=== PATIENT | female | born 1940 | race Caucasian/White ===

== ENCOUNTER 2017-09-16 14:49 | Inpatient (IN) | payer MEDICARE, MEDICAID ==
[~2017-09-16] VITALS: Ht 157.5 cm; Wt 64.2 kg
[~2017-09-16 14:49] MED LIST: ACIDOPHILUS1 EAC3 PO; ASPIR 8181 MG PO; BANOPHEN25 MG PO; CALCIUM 600 +1 EAC1 PO; CALCIUM VITAMIN D PO; CEFUROXIME500 MG PO; CENTRUM SILVER1 EAC4 PO; CLARITIN10 MG PO; COLACE 100 MG100 MG PO; COLACE100 MG PO; ENOXAPARIN40 MG/0.1 SUBQ; ENSURE ORIGINA237 ML PO; FENTANYL PA50 MCG/HR TOP; FLAGYL500 MG PO; FLEXERIL PO; FLORANEX TABLE1 EACH PO; GABAPENTIN 100100 MG PO; HUMALOG100 UNIT/1; HUMALOG100 UNIT/1 SUBQ; HYDROCODONE-AP1 EAC6 PO; LACTINEX CHEWA1 EACH PO; LEVOTHYROXIN0.075 MG PO; LEVOTHYROXINE 0.1 MG PO; LEVOTHYROXINE75 MCG PO; LIDODERM 5%1 PATC1 TOP; LIPITOR10 MG PO; MAGOX 400400 MG PO; MELATONIN3 MG PO; METFORMIN HCL500 MG PO; MILK OF MA2400 MG/10 PO; MIRALAX17 GM PO; NORCO 5-325 TA1 EACH PO; NORVASC5 MG PO; NOVOLOG100 UNIT/1 SUBQ; OMEGA-31000 M1 PO; ONDANSETRON HCL4 M2 PO; PANTOPRAZOLE SO40 M1 PO; PROTONIX 20 MG20 M1 PO; PROVIGIL 100 M100 M1 PO; SENNA8.6 MG PO; SERTRALINE HCL50 MG PO; TESSALON PERLE100 MG PO; THERAPEUTIC-M1 EAC2 PO; TYLENOL325 MG PO; VANCOCIN 125 M125 M1 PO; VANCOMYCIN100 MG/M1 PO; ZOCOR20 MG PO
[2017-09-16 14:54] VITALS: BP 178/93
[2017-09-16] MEDS ORDERED: ROBITUSSIN COU118 M5 PO (15:10)
[2017-09-16] MEDS ORDERED: PROBIOTIC1 EAC2 PO (15:11)
[2017-09-16] MEDS ORDERED: OMEPRAZOLE 20 M20 M1 PO (15:11)
[2017-09-16] MEDS ORDERED: CRANBERRY400 MG PO (15:11)
[2017-09-16] MEDS ORDERED: BENADRYL ITCH28.3 G1 TOP (15:12)
[2017-09-16] MEDS ORDERED: MUCINEX600 MG PO (15:12)
[2017-09-16] MEDS ORDERED: GLUCOTROL5 MG PO (15:12)
[2017-09-16] MEDS ORDERED: LEVAQUIN 500 M500 M2 PO (15:12)
[2017-09-16] MEDS ORDERED: LEVOXYL125 MCG PO (15:24)
[2017-09-16] MEDS ORDERED: CHILDREN'S30 MG/5 M4 PO (15:25)
[2017-09-16 15:27] LABS: ABSOLUTE BASOPHILS 0.1 thou/uL (0.0-0.2); ABSOLUTE EOSINOPHILS 0.3 thou/uL (0.0-0.7); ABSOLUTE LYMPHOCYTES 2.1 thou/uL (0.8-5.3); ABSOLUTE MONOCYTES 0.8 thou/uL (0.0-1.2); ABSOLUTE NEUTROPHILS 7.5 thou/uL (1.6-8.1); BASOPHILS 0.6 %; EOSINOPHILS 2.9 %; HEMATOCRIT 34.4 % (37.0-47.0); HEMOGLOBIN 11.2 gm/dL (12.0-15.0); LYMPHOCYTES 19.7 %; MCH 23.8 pg (26.0-34.0); MCHC 32.6 g/dL (28.0-37.0); MONOCYTES 7.5 %; MPV 7.9 fl. (7.2-11.1); NUCLEATED RBCS 0 /100WBC; PLATELET COUNT* 491 thou/uL (150-400); POLYS 69.3 %; RBC 4.72 mil/uL (4.20-5.00); RDW-CV 16.7 % (10.5-14.5); WBC 10.8 thou/uL (4.0-11.0)
[2017-09-16 15:37] LABS: ANION GAP 8 mmol/L (7-16); APTT 27.6 Seconds (25.0-31.3); BUN 6 mg/dL (7-18); CALCIUM 9.6 mg/dL (8.5-10.1); CHLORIDE 90 mmol/L (98-107); CO2 26 mmol/L (21-32); CREATININE 0.9 mg/dL (0.6-1.3); GLUCOSE 198 mg/dL (70-99); POTASSIUM 3.1 mmol/L (3.5-5.1); SODIUM 124 mmol/L (136-145)
[2017-09-16 15:48] LABS: ALBUMIN 3.1 g/dL (3.4-5.0); ALKALINE PHOSPHATASE 118 U/L (46-116); NT-PRO BRAIN NAT PEPTIDE 287 pg/mL (<300); SGOT 33 U/L (15-37); SGPT 47 U/L (30-65); TOTAL BILIRUBIN 0.3 mg/dL (<0.1-1.0); TOTAL PROTEIN 8.3 g/dL (6.4-8.2); TROPONIN-I LEVEL <0.06 ng/mL (<0.06)
[2017-09-16 17:17] LABS: URINE BILIRUBIN NEGATIVE (Negative); URINE BLOOD TRACE (Negative); URINE CLARITY CLEAR; URINE COLOR STRAW; URINE GLUCOSE-RANDOM TRACE (Negative); URINE KETONES NEGATIVE (Negative); URINE LEUKOCYTES-REFLEX 1+ (Negative); URINE PROTEIN 1+ (Negative); URINE SPECIFIC GRAVITY <= 1.005 (1.005-1.030); URINE UROBILINOGEN 0.2 E.U./dl (0.2-1.0)
[2017-09-16 17:18] LABS: URINE NITRITE-REFLEX POSITIVE (Negative)
[2017-09-16 17:35] LABS: MUCUS None Seen strn/LPF (None Seen); SQUAMOUS 0-3 Few /LPF (0-3)
[2017-09-16 17:36] LABS: URINE WBC-REFLEX 6-15 Few /HPF (0-5)
[2017-09-16 17:37] LABS: CRYSTALS None Seen /LPF (None Seen); HYALINE CASTS 0-3 Few /LPF (None Seen); URINE RBC 0-2 Rare /HPF (0-2)
[2017-09-16 20:25] VITALS: BP 135/50
[2017-09-16 20:45] VITALS: BP 170/72
--- NOTE | 2017-09-16 21:43 | NUR ---
PAGED DR. BROWN TO CLARIFY ED ORDERS FOR LEVAQUIN 500MG IV DAILY. PHYSICIAN STATES THAT THE ANTIBIOTICS HE ENTERED FOR THE PATIENT ARE WHAT HE WANTS THE PATIENT ON AND TO DISREGARD THE LEVAQUIN ED ORDER.
[2017-09-17 00:07] VITALS: BP 147/63
[2017-09-17 03:59] VITALS: BP 175/95
--- NOTE | 2017-09-17 05:11 | NUR ---
PATIENT PARTIALLY PROGRESSING TOWARDS GOALS: PATIENT STILL HAS CONSISTENT, NON-PRODUCTIVE COUGH DESPITE COUGH MEDICATION ADMINISTERED. PATIENT IS INCONTINENT OF URINE, CHANDLER CARE PROVIDED WITH INCONTINENCE CHECKS Q2H. SKIN REMAINS INTACT. REPOSITIONING COMPLETED Q2H. HOURLY ROUNDING OBSERVED. CALL LIGHT WITHIN REACH.
[2017-09-17 05:29] LABS: HEMOGLOBIN 10.8 gm/dL (12.0-15.0); MCH 23.5 pg (26.0-34.0); MCHC 32.7 g/dL (28.0-37.0); MPV 8.4 fl. (7.2-11.1); RBC 4.59 mil/uL (4.20-5.00); RDW-CV 16.7 % (10.5-14.5); WBC 12.6 thou/uL (4.0-11.0)
[2017-09-17 06:02] LABS: CALCIUM 9.5 mg/dL (8.5-10.1); CREATININE 0.8 mg/dL (0.6-1.3); MAGNESIUM 1.3 mg/dL (1.8-2.4)
[2017-09-17 06:03] LABS: POTASSIUM 4.1 mmol/L (3.5-5.1)
[2017-09-17 08:00] VITALS: BP 153/76
--- NOTE | 2017-09-17 09:51 | NUR ---
ASSUMED CARE OF PT AROUND 0730 THIS AM. REFER TO ASSESSMENT. PT SLIGHTLY DROWSY THIS AM. STATES FROM PAIN PILL. IV ABTS INFUSED ORDERED. TELE SR. PT ABLE TO FEED HERSELF THIS AM. NO OTHER CONCERNS AT THIS TIME. CLWR. WCTM.
[2017-09-17 12:36] VITALS: BP 153/66
--- NOTE | 2017-09-17 14:36 | NUR ---
CM ASSESSMENT: Pt is A&O. Resides at [facility]. Dtr in room at bedside. Plan is for Pt to return to [facility], family wants Pt to have skilled services at [facility]. Pt is wc bound and requires assist with transfers. Pt is able to propel her wc. No home o2. ST eval ordered. CM asked nurse to get PT/OT ordered also. Following.
--- NOTE | 2017-09-17 15:05 | EKG ---
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 : 1940 Requested By: Kvng Nieto Order Number: [id number] MD: Chris Trimble Measurements Intervals [place] Rate: 91 P: 37 IN: 140 QRS: -26 QRSD: 83 T: 123 QT: 342 QTc: 421 Interpretive Statements Sinus rhythm Atrial premature complex LVH with secondary repolarization abnormality Anterior Q waves, possibly due to LVH No previous ECG available for comparison Electronically Signed On 09-17-2017 15:05:04 CDT by Chris Trimble [email or web address] <ELECTRONICALLY SIGNED> By: Chris Trimble MD, [facility] 09/17/17 1505 1503 1503 Chris Trimble MD, [facility] /EPI
[2017-09-17 16:57] VITALS: BP 137/67
--- NOTE | 2017-09-17 17:07 | NUR ---
PT PROGRESSING TOWARDS GOALS THIS SHIFT. NO C/O PAIN. BLOOD SUGAR DID DROP INTO THE 50'S THIS SHIFT WITH SSI. IMPROVED WITH ORANGE JUICE AND CRACKERS. ORAL INTAKE ENCOURAGED. TELE SR. AFEBRILE. PT ABLE TO FEED SELF THIS SHIFT WITH LIMITED SET UP OF TRAY. NO OTHER CONCERNS AT THIS TIME. CLWR. WCTM.
[2017-09-17 20:00] VITALS: BP 161/66
[2017-09-18] VITALS: BP 153/78
--- NOTE | 2017-09-18 01:01 | NUR ---
RECIEVED REPORT AND ASSUMED CARE OF PATIENT AT 1930. 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 ASSESSMENT AND VITALS COMPLETED CHARTED, VSS. BLOOD PRESSURE SLIGHTLY ELEVATED 150-160'S. NOTED IN PATIENT'S RECORD THAT SHE TAKES AMLODIPINE AT THE CUSTODIAL. PHYSICIAN NOTIFIED AND MEDICATION RESTARTED. GOAL IS BLOOD PRESSURE IMPROVEMENT. CALL LIGHT WITHIN REACH. REPORT GIVEN TO PRIYANKA HOGUE, AT THIS TIME.
[2017-09-18 04:00] VITALS: BP 176/76
[2017-09-18 04:59] LABS: HEMATOCRIT 32.4 % (37.0-47.0); HEMOGLOBIN 10.5 gm/dL (12.0-15.0); MCH 23.6 pg (26.0-34.0); MCHC 32.4 g/dL (28.0-37.0); MCV 72.9 fL (80.0-100.0); RBC 4.44 mil/uL (4.20-5.00); RDW-CV 16.5 % (10.5-14.5); WBC 13.6 thou/uL (4.0-11.0)
--- NOTE | 2017-09-18 05:03 | NUR ---
ASSUMED CARE OF PT AT 0030 FROM GUSTABO CARRERA RN, I CONCUR WITH DOCUMENTED ASSESSMENT. PT STILL DROWSY BUT ORIENTED VSS DENIED ANY COMPLAINTS AND SLEPT THROUGH THE NIGHT. WILL CONTINUE PLAN OF CARE.
[2017-09-18 05:12] LABS: CALCIUM 9.3 mg/dL (8.5-10.1); CREATININE 0.7 mg/dL (0.6-1.3); MAGNESIUM 1.3 mg/dL (1.8-2.4); POTASSIUM 3.2 mmol/L (3.5-5.1)
[2017-09-18 08:16] VITALS: BP 146/73
[2017-09-18 11:42] VITALS: BP 159/71
--- NOTE | 2017-09-18 14:13 | NUR ---
ASSUMED PT CARE AT 0700 PT IS ALERT AND ORIENTED X 4 PT DENIES PAIN OR SOA, PT IS A FALL RISK BED ALARM IS ON PT IS SR ON THE MONITOR, PT IS WHEELCHAIR DEPENDANT, PT HAS ANTIBIOTICS GIVEN, PT IS TURNED Q 2 HOURS NO SKIN ISSUES NOTED, WILL CONTINUE TO MONITOR
[2017-09-18 16:08] VITALS: BP 143/84
[2017-09-18 20:45] VITALS: BP 113/56
[2017-09-19] VITALS: BP 132/63
--- NOTE | 2017-09-19 03:19 | NUR ---
ASSUMED CARE OF PT AT 1900. PT IS ALERT AND ORIENTED. VSS. PERRLA. NO COMPLAINTS OF PAIN. PT IS A Q2 TURN. PT IS IN SINUS RYTHM ON THE TELEMETRY. PT IS RESTING COMFORTABLY IN BED. RESPIRATIONS ARE EVEN AND NONLABORED. WILL CONTINUE TO MONITOR PT.
[2017-09-19 04:00] VITALS: BP 158/79
[2017-09-19 05:07] LABS: HEMATOCRIT 33.4 % (37.0-47.0); HEMOGLOBIN 10.7 gm/dL (12.0-15.0); MCH 23.5 pg (26.0-34.0); MCHC 31.9 g/dL (28.0-37.0); MCV 73.5 fL (80.0-100.0); MPV 7.8 fl. (7.2-11.1); RBC 4.55 mil/uL (4.20-5.00); RDW-CV 16.7 % (10.5-14.5); WBC 11.9 thou/uL (4.0-11.0)
[2017-09-19 05:34] LABS: CALCIUM 9.9 mg/dL (8.5-10.1); CREATININE 0.8 mg/dL (0.6-1.3); MAGNESIUM 1.5 mg/dL (1.8-2.4); POTASSIUM 4.7 mmol/L (3.5-5.1)
[2017-09-19 08:00] VITALS: BP 154/86
--- NOTE | 2017-09-19 08:00 | NUR ---
AM ASSESSEMENT COMPLETE, DEFER TO COMPUTER CHARTING. 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 ALERT ORIENTED. LUNGS COARSE, CONGESTED WET COUGH - 02 ON 1L PER NC WITH 02 SAT 96%. DENIES PAIN, DIZZINESS OR ANY DISCOMFORT. HOB ELEVATED, CALL LIGHT WITHIN REACH. WILL MONITOR.
--- NOTE | 2017-09-19 10:30 | NUR ---
Pt discharging back to [facility] today, Pt will be skilled. Faxed dc orders. Chart copied. Nurse report number provided, . Updated Pt's granddtr of disposition. Facility to warp picker at 130pm.
[2017-09-19] MEDS ORDERED: CEFDINIR300 MG PO (10:58)
[2017-09-19] MEDS ORDERED: VANCOCIN 125 M125 M1 PO (11:01)
[2017-09-19] MEDS ORDERED: AZITHROMYCIN 2250 MG PO (11:02)
[2017-09-19] MEDS ORDERED: DUONEB 2.5-0.5 M3 ML INH ×2 (11:05→11:06)
[2017-09-19 11:13] VITALS: BP 154/86
[2017-09-19 11:50] VITALS: BP 161/77
--- NOTE | 2017-09-19 13:07 | NUR ---
DISCHARGE ORDERS RECEIVED. ALL PERSONAL ITEMS COLLECTED AND PLACED IN WHITE BELONGING BAG FOR DISCHARGE. SALINE LOCK DC'D. REPORT CALLED TO [facility] GIVEN TO JAYLA SLAUGHTER WHOM VERBALIZED UNDERSTANDING. GRAND DAUGHTER AT BEDSIDE AWARE OF DISCHARGE.
== END 2017-09-19 13:30 | DRG 871 ==
LOC: M.ERS 14:49 → M.2W 15:54 → M.TBA-ER 15:54 → M.2W 20:55
PROVIDERS: Family Medicine; ADMIT Internal Medicine
DX: A41.9 Sepsis, unspecified organism (principal); J18.9 Pneumonia, unspecified organism; G92 Toxic encephalopathy; E87.1 Hypo-osmolality and hyponatremia; N39.0 Urinary tract infection, site not specified; E11.9 Type 2 diabetes mellitus without complications; I10 Essential (primary) hypertension; J20.8 Acute bronchitis due to other specified organisms; E78.5 Hyperlipidemia, unspecified; E03.9 Hypothyroidism, unspecified; M19.90 Unspecified osteoarthritis, unspecified site; Z79.82 Long term (current) use of aspirin; Z79.84 Long term (current) use of oral hypoglycemic drugs; Z79.899 Other long term (current) drug therapy; Z88.0 Allergy status to penicillin; Z88.1 Allergy status to other antibiotic agents; Z88.2 Allergy status to sulfonamides

== ENCOUNTER 2018-08-01 07:32 | Inpatient (IN) | payer MEDICARE, MEDICAID ==
[~2018-08-01] VITALS: Ht 165.1 cm; Wt 71.2 kg
--- NOTE | ~2018-08-01 | PROC ---
[address] [address] PROCEDURE REPORT Name: WILFRIDODANTE ANNEMELISSA Room: [address] ADM IN M.R.#: [id number] Admission: 08/01/18 Attend Phys: Luz Marina Waldron MD Discharge: Date of : 42 Report #: [id number] THIS REPORT FOR: //name// For GI report, please see the Provation report in Perceptive 7 content. By: 0653Medical Records Staff BERE /SIMONE
--- NOTE | ~2018-08-01 | EKG ---
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: : 1940 Requested By: Keagan Montez Order Number: [id number] MD: Measurements Intervals [place] Rate: 104 P: 26 ND: 176 QRS: -26 QRSD: 85 T: 150 QT: 340 QTc: 448 Interpretive Statements Sinus tachycardia Low voltage, precordial leads LVH with secondary repolarization abnormality Anterior Q waves, possibly due to LVH Compared to ECG 09/16/2017 15:03:32 Low QRS voltage now present Sinus rhythm no longer present Atrial premature complex(es) no longer present [email or web address] By: 0848 0848 [place], [place] /EPI
[~2018-08-01 07:32] MED LIST changes: +ASPIR 8181 MG PER TUBE; -ASPIR 8181 MG PO; +AZITHROMYCIN 2250 MG PO; +BENADRYL ITCH28.3 G1 TOP; +CEFDINIR300 MG PO; +CHILDREN'S30 MG/5 M4 PO; +CLARITIN10 MG PER TUBE; -CLARITIN10 MG PO; +CRANBERRY400 MG PER TUBE; +DUONEB 2.5-0.5 M3 ML INH; +GABAPENTIN 100100 MG PER TUBE; +GLUCOTROL5 MG PO; +LEVAQUIN 500 M500 M2 PO; +LEVOXYL125 MCG PER TUBE; +MAGOX 400400 MG PER TUBE; -MAGOX 400400 MG PO; +MELATONIN3 MG PER TUBE; -MELATONIN3 MG PO; +METFORMIN HCL500 MG PER TUBE; -METFORMIN HCL500 MG PO; +MUCINEX600 MG PER TUBE; +OMEGA-31000 M1 PER TUBE; +OMEPRAZOLE 20 M20 M1 PO; +PROBIOTIC1 EAC2 PO; +ROBITUSSIN COU118 M5 PO; +TYLENOL325 MG PER TUBE; -TYLENOL325 MG PO
[2018-08-01 07:58] LABS: POC CA IONIZED 4.6 mg/dL (4.5-5.3); POC CREATININE 0.5 mg/dL (0.6-1.3); POC HEMOGLOBIN 12.2 g/dL (12.0-17.0); POC POTASSIUM 3.9 mmol/L (3.5-4.9)
[2018-08-01 07:59] LABS: ABSOLUTE EOSINOPHILS 0.1 thou/uL (0.0-0.7); ABSOLUTE LYMPHOCYTES 1.4 thou/uL (0.8-5.3); ABSOLUTE MONOCYTES 0.4 thou/uL (0.0-1.2); ABSOLUTE NEUTROPHILS 5.9 thou/uL (1.6-8.1); BASOPHILS 0.4 %; EOSINOPHILS 1.2 %; HEMATOCRIT 33.8 % (37.0-47.0); HEMOGLOBIN 10.7 gm/dL (12.0-15.0); MCHC 31.6 g/dL (28.0-37.0); MCV 66.6 fL (80.0-100.0); MONOCYTES 4.9 %; MPV 7.7 fl. (7.2-11.1); NUCLEATED RBCS 0 /100WBC; PLATELET COUNT* 387 thou/uL (150-400); POLYS 75.5 %; RBC 5.07 mil/uL (4.20-5.00); RDW-CV 17.4 % (10.5-14.5); WBC 7.8 thou/uL (4.0-11.0)
[2018-08-01 08:09] LABS: APTT 23.6 Seconds (25.0-31.3); INR 0.9; PROTIME 9.7 Seconds (9.20-11.50)
[2018-08-01 08:25] VITALS: BP 164/79
[2018-08-01 09:00] LABS: ALBUMIN 3.8 g/dL (3.4-5.0); CALCIUM 9.4 mg/dL (8.5-10.1); CREATININE 0.8 mg/dL (0.6-1.3); POTASSIUM 3.9 mmol/L (3.5-5.1); TOTAL BILIRUBIN 0.5 mg/dL (<0.1-1.0); TOTAL PROTEIN 7.4 g/dL (6.4-8.2)
[2018-08-01 09:13] LABS: ANISOCYTOSIS Occasional; HYPOCHROMASIA 1+; PLATELET ESTIMATE ADEQUATE
[2018-08-01 09:14] LABS: MICROCYTES 2+
[2018-08-01] MEDS ORDERED: PROLIA60 MG/1 ML IM (09:15)
[2018-08-01] MEDS ORDERED: FAMOTIDINE 20 M20 MG PER TUBE (09:15)
[2018-08-01] MEDS ORDERED: CALCIUM 600 +1 EAC1 PER TUBE (09:15)
[2018-08-01] MEDS ORDERED: IBUPROFEN 200200 M1 PER TUBE (09:16)
[2018-08-01] MEDS ORDERED: LOPERAMIDE 2 MG2 M1 PER TUBE (09:16)
[2018-08-01] MEDS ORDERED: SYSTANE GEL EYE10 ML OTIC (09:17)
[2018-08-01] MEDS ORDERED: OCUFLOX5 ML OTIC (09:18)
[2018-08-01 09:58] LABS: URINE BILIRUBIN NEGATIVE (Negative); URINE BLOOD 2+ (Negative); URINE CLARITY CLOUDY; URINE COLOR YELLOW; URINE GLUCOSE-RANDOM NEGATIVE (Negative); URINE KETONES NEGATIVE (Negative); URINE LEUKOCYTES 3+ (Negative); URINE NITRITE NEGATIVE (Negative); URINE PROTEIN 1+ (Negative); URINE UROBILINOGEN 0.2 E.U./dl (0.2-1.0)
[2018-08-01 10:06] LABS: SQUAMOUS 4-10 Moderate /LPF (0-3); URINE WBC >25 Many /HPF (0-5)
[2018-08-01 10:07] LABS: BACTERIA >30 Many /HPF (None Seen); URINE RBC 3-10 Few /HPF (0-2)
[2018-08-01 10:08] LABS: CASTS None Seen /LPF (None Seen); CRYSTALS None Seen /LPF (None Seen); MUCUS None Seen strn/LPF (None Seen)
[2018-08-01 12:17] LABS: CHOLESTEROL 260 mg/dL (<200); HDL CHOLESTEROL 48 mg/dL (>40); LDL CHOLESTEROL 175 mg/dL (<100); TC:HDL 5.4 Ratio (Not establshd); TRIGLYCERIDE 189 mg/dL (<150); VLDL 38 mg/dL (<40)
[2018-08-01 12:30] LABS: SERUM ASSESSMENT Clear
[2018-08-01 13:53] LABS: BE -2.8 mmol/L (-2 to +3); PCO2 32.2 mmHg (35.0-45.0); PO2 71.1 mmHg (75.0-100.0); pH 7.427 (7.340-7.450)
[2018-08-01 14:14] VITALS: BP 169/55
[2018-08-01 15:00] VITALS: BP 139/87
[2018-08-01 16:00] VITALS: BP 151/68
[2018-08-01 20:00] VITALS: BP 139/65
[2018-08-02] VITALS (7 sets, daily range): BP systolic 114–173; BP diastolic 57–80
[2018-08-02 01:01] LABS: GLYCOHEMOGLOBIN (HGB A1C) 7.1 % (4.8-5.6)
[2018-08-02 05:27] LABS: ALBUMIN 3.6 g/dL (3.4-5.0); CALCIUM 7.9 mg/dL (8.5-10.1); CREATININE 0.6 mg/dL (0.6-1.3); POTASSIUM 3.6 mmol/L (3.5-5.1); TOTAL BILIRUBIN 0.7 mg/dL (<0.1-1.0); TOTAL PROTEIN 7.2 g/dL (6.4-8.2)
--- NOTE | 2018-08-02 15:04 | EKG ---
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 Internship: : 1940 Requested By: Keagan Montez Order Number: [id number] MD: Demetris Bateman Measurements Intervals [place] Rate: 104 P: 26 [place]: 176 QRS: -26 QRSD: 85 T: 150 QT: 340 QTc: 448 Interpretive Statements Sinus tachycardia Low voltage, precordial leads Nonspecific T-wave flattening Anterior Q waves, possibly due to LVH Compared to ECG 09/16/2017 15:03:32 Low QRS voltage now present Sinus rhythm no longer present Atrial premature complex(es) no longer present Electronically Signed On 08-02-2018 15:03:52 CDT by Demetris Bateman [email or web address] <ELECTRONICALLY SIGNED> By: Demetris Bateman MD, FACC 08/02/18 1503 0848 0848 Demetris Bateman MD, FACC /EPI
[2018-08-03] VITALS: BP 171/88
[2018-08-03 04:00] VITALS: BP 150/64
[2018-08-03 08:00] VITALS: BP 146/49; BP 86/43
[2018-08-03 12:00] VITALS: BP 172/81
--- NOTE | 2018-08-03 13:33 | 2DMMODE ---
[place] [address] 2 D/M-MODE ECHOCARDIOGRAM Name: DANTE NEVILLE Room: [facility] ADM IN [facility]#: [id number] Admission: 08/01/18 Attend Phys: Luz Marina Waldron, Discharge: Date of : 44 Date of Service: 08/03/18 1333 Report #: [id number] THIS REPORT FOR: //name// APPROVED REPORT Study performed: 08/03/2018 10:18:12 EXAM: Comprehensive 2D, Doppler, and color-flow Echocardiogram Patient Location: In-Patient Room #: 209 Status: routine BSA: 1.98 HR: 106 bpm BP: 1464/49 mmHg Rhythm: NSR Other Information Study Quality: Fair Indications CVA/TIA Echo Enhancing Agent Indication: Rule out Shunt Agent(s) / Amount(s) Used: Agitated Saline 10 cc 2D Dimensions IVSd: 13.15 (7-11mm) LVOT Diam: 19.55 (18-24mm) LVDd: 36.73 mm PWd: 10.54 (7-11mm) Ascending Ao: 41.31 (22-36mm) LVDs: 25.24 (25-40mm) Aortic Root: 28.96 mm Volumes Left Atrial Volume (Systole) LA ESV Index: 15.90 mL/m2 Aortic Valve AoV Peak Horacio.: 1.34 m/s AO Peak Gr.: 7.19 mmHg LVOT Max P.19 mmHg AO Mean Gr.: 4.08 mmHg LVOT Mean P.02 mmHg LVOT Max V: 1.02 m/s AO V2 VTI: 24.76 cm LVOT Mean V: 0.65 m/s WALTER (VTI): 2.24 cm2 LVOT V1 VTI: 18.49 [place] [address] 2 D/M-MODE ECHOCARDIOGRAM Name: [facility] Room: [address] IN .R.#: [id number] Admission: 08/01/18 Attend Phys: Luz Marina Waldron, Discharge: Date of : 44 Date of Service: 08/03/18 1333 Report #: [id number] Mitral Valve E/A Ratio: 0.60 MV Decel. Time: 203.05 ms MV E Max Horacio.: 0.87 m/s MV PHT: 58.88 ms MVA (PHT): 3.74 cm2 TDI E/Lateral E': 10.88 E/Medial E': 10.88 Medial E' Horacio.: 0.08 m/s Lateral E' Horacio.: 0.08 m/s Pulmonary Valve PV Peak Horacio.: 1.28 m/s PV Peak Gr.: 6.59 mmHg Tricuspid Valve RAP Estimate: 5.00 mmHg TR Peak Gr.: 24.62 mmHg RVSP: 29.00 mmHg PA Pressure: 29.00 mmHg Left Ventricle The left ventricle is normal size. There is normal LV segmental wall motion. There is normal left ventricular wall thickness. Left ventricular systolic function is normal. The left ventricular ejection fraction is within the normal range. LVEF is 60-65%. Grade I - abnormal relaxation pattern. Right Ventricle The right ventricle is normal size. The right ventricular systolic function is normal. Atria The left atrium size is normal. Interatrial septum is intact without evidence of ASD or PFO. The right atrium size is normal. Aortic Valve Mild aortic valve sclerosis. Trace aortic regurgitation. There is no aortic valvular stenosis. Mitral Valve The mitral valve is normal in structure. There is no mitral valve regurgitation noted. No evidence of mitral valve stenosis. Tricuspid Valve The tricuspid valve is normal in structure. Trace tricuspid regurgitation. [place] [address] 2 D/M-MODE ECHOCARDIOGRAM Name: DANTE NEVILLEMELISSA Room: [address] IN M.R.#: [id number] Admission: 08/01/18 Attend Phys: Lu zMarina Waldron, Discharge: Date of : 44 Date of Service: 08/03/18 1333 Report #: [id number] Pulmonic Valve Pulmonic valve is not well visualized. There is no pulmonic valvular regurgitation. Great Vessels Aortic root is mildly dilated. IVC is not well visualized. Pericardium There is no pericardial effusion. <Conclusion> LVEF is 60-65%. Mild aortic valve sclerosis. Interatrial septum is intact without evidence of ASD or PFO. <ELECTRONICALLY SIGNED> By: Eran Chandler MD, FACC 08/03/18 1333 1333 1333 Eran Chandler MD, FACC /INF
[2018-08-03 15:48] VITALS: BP 170/70
[2018-08-03 19:50] VITALS: BP 161/68
[2018-08-04] VITALS: BP 157/78
[2018-08-04 04:00] VITALS: BP 131/55
[2018-08-04 08:00] VITALS: BP 160/80
[2018-08-04 12:23] VITALS: BP 139/69
[2018-08-04 16:47] VITALS: BP 155/70
[2018-08-04 19:40] VITALS: BP 172/91
[2018-08-05] VITALS: BP 144/62
[2018-08-05 04:00] VITALS: BP 122/54; BP 149/62
[2018-08-05 08:00] VITALS: BP 165/85
[2018-08-05 12:18] VITALS: BP 167/78
[2018-08-05 15:51] VITALS: BP 163/82
[2018-08-05 20:00] VITALS: BP 170/76
[2018-08-06] VITALS (7 sets, daily range): BP systolic 139–189; BP diastolic 46–90
[2018-08-06 12:25] LABS: ABSOLUTE BASOPHILS 0.1 thou/uL (0.0-0.2); ABSOLUTE EOSINOPHILS 0.2 thou/uL (0.0-0.7); ABSOLUTE LYMPHOCYTES 1.8 thou/uL (0.8-5.3); ABSOLUTE MONOCYTES 0.6 thou/uL (0.0-1.2); ABSOLUTE NEUTROPHILS 8.4 thou/uL (1.6-8.1); BASOPHILS 0.7 %; EOSINOPHILS 2.2 %; HEMATOCRIT 37.6 % (37.0-47.0); HEMOGLOBIN 11.9 gm/dL (12.0-15.0); LYMPHOCYTES 16.3 %; MCH 21.2 pg (26.0-34.0); MCHC 31.7 g/dL (28.0-37.0); MCV 66.8 fL (80.0-100.0); MONOCYTES 5.5 %; MPV 8.4 fl. (7.2-11.1); NUCLEATED RBCS 0 /100WBC; PLATELET COUNT* 426 thou/uL (150-400); POLYS 75.3 %; RBC 5.63 mil/uL (4.20-5.00); WBC 11.2 thou/uL (4.0-11.0)
[2018-08-06 13:08] LABS: HYPOCHROMASIA 1+; PLATELET ESTIMATE INCREASED
[2018-08-06 13:09] LABS: ANISOCYTOSIS 2+; MICROCYTES 2+; POIKILOCYTOSIS 1+; POLYCHROMASIA 1+
[2018-08-07 00:01] VITALS: BP 152/89
[2018-08-07 04:00] VITALS: BP 169/74
[2018-08-07 05:22] LABS: HEMOGLOBIN 11.4 gm/dL (12.0-15.0); MCH 21.2 pg (26.0-34.0); MCHC 31.8 g/dL (28.0-37.0); MCV 66.6 fL (80.0-100.0); MPV 8.1 fl. (7.2-11.1); RBC 5.4 mil/uL (4.20-5.00); RDW-CV 18.1 % (10.5-14.5); WBC 12.3 thou/uL (4.0-11.0)
[2018-08-07 05:29] LABS: CALCIUM 8.5 mg/dL (8.5-10.1); CREATININE 0.7 mg/dL (0.6-1.3); POTASSIUM 3.8 mmol/L (3.5-5.1)
[2018-08-07 08:00] VITALS: BP 144/76
--- NOTE | 2018-08-07 10:16 | EEG ---
[address] [address] EEG STUDY REPORT Name: DANTE NEVILLE Room: [address] IN M.R.#: [id number] Admission: 08/01/18 Attend Phys: Luz Marina Waldron MD Discharge: Date of : 42 Report #: [id number] THIS REPORT FOR: //name// CC: Donnie Waldron DATE OF SERVICE: 08/01/2018 This patient is being evaluated for altered mental status. EEG was done by placing the electrodes by standard 10-20 system of electrode placement. Both referential and sequential montages were used for recording. Background activity in this patient's EEG is about 7 Hz and 30 microvolt. It is more slow on the left side as compared to the right side. Photic stimulation is unremarkable. Throughout the record, no active epileptiform activity was noticed. IMPRESSION: This is an abnormal EEG because it is disorganized and poorly formed. That can indicate diffuse insult to the brain. It is more slow on the left side as compared to the right side, because of that an underlying lesion on the left side should be excluded. Thank you very much for this referral. <ELECTRONICALLY SIGNED> By: Stephen Acosta MD 08/07/18 1016 1955 00Stephen Acosta MD /nt
--- NOTE | 2018-08-07 10:16 | CON ---
[address] [address] CONSULTATION Name: DANTE NEVILLE Room: [address] IN M.R.#: [id number] Admission: 08/01/18 Attend Phys: Luz Marina Waldron MD Discharge: Date of : 42 Report #: [id number] THIS REPORT FOR: //name// CC: Donnie Waldron DATE OF SERVICE: 08/01/2018 HISTORY OF PRESENT ILLNESS: This is a 78-year-old female patient who was evaluated by me for stroke-like symptoms. The patient is unable to provide any history at all. She opens her eyes, tried to say a few words, but she is not able to express herself. Family provided history and they indicate that she was in the [place]. They noticed some facial droop last night before she went to sleep, but in the shift change this morning and the morning nurse noticed and got concerned and send this patient here. She had a CT and a stroke protocol CT by Emergency Room physician. Originally, the radiologist read it as normal as I understand from the Emergency Room physician, but subsequently they indicated that this patient had some question of spasm from looking at their final report that think it may be a small embolus. REVIEW OF SYSTEMS: Indicate that the patient has pretty significant problem with the spine. She even had a fracture there. She did not want to do any treatment of that fracture and that was left alone. She had hip surgery. As far as they know, everything is MRI compatible. She does have a history of diabetes, hypertension and hyperlipidemia. When these symptoms occur, her blood sugar was about 150. She does have weakness on the right side in the baseline and that is because of cord compression or cervical spine pathology as I understand. PAST MEDICAL HISTORY: Negative for stroke. FAMILY HISTORY: Negative for early age stroke. SOCIAL HISTORY: She lives in a long-term. PHYSICAL EXAMINATION: Limited. She will open her eyes. She will follow some commands. She does not have speech output. She could not say anything for me. She moves the right side somewhat, but she is profoundly weak there. Movement is very limited. Sensory system examination was very difficult to carry out. Cardiac and respiratory examinations appear noncontributory. ASSESSMENT: This patient's symptoms are suggestive of stroke, but we have not documented that. If the stroke occur, the symptoms started yesterday before she went to sleep because the facial droop was noticed and she is not TPA candidate. But, [place] [address] CONSULTATION Name: DANTE NEVILLE Room: [address] IN [facility].#: [id number] Admission: 08/01/18 Attend Phys: Luz Marina Waldron MD Discharge: Date of : 42 Report #: [id number] I discussed the situation with the family. I told them that we need to proceed with MRI to clarify the situation. Problem with the MRI is that this patient has metal. There is no way to be certain that this metal is MRI compatible in a hurry. But, I think we should proceed with MRI and an EEG and then decide about further treatment in this patient. Family is agreeable for that. They understand the risk and we will set that one up and follow up this patient later on. <ELECTRONICALLY SIGNED> By: Stephen Acosta MD 08/07/18 1016 1045 2222Pblane Acosta MD /nt
[2018-08-07 12:29] VITALS: BP 179/87
[2018-08-07 16:00] VITALS: BP 142/69
--- NOTE | 2018-08-07 19:11 | CON ---
[address] [address] CONSULTATION Name: DANTE NEVILLE Room: [address] IN M.R.#: [id number] Admission: 08/01/18 Attend Phys: Luz Marina Waldron MD Discharge: Date of : 44 Report #: [id number] THIS REPORT FOR: //name// CC: Donnie Waldron DICTATED BY: Victoria Hayden [facility] DATE OF SERVICE: 08/06/2018 She resides in extended care facility. REASON FOR CONSULTATION: PEG tube placement. Please note at the time of this dictation, the patient was seen and physically examined by myself. HISTORY OF PRESENT ILLNESS: This 78-year-old female who presented to the Emergency Room after being reported that morning that she was having stroke-like symptoms. She had slurred speech, facial droop, right-sided weakness and went around 5:00 the morning of admission at the longterm and she was brought into the ER at that time. It was noted and confirmed by Dr. Acosta that she had an embolic CVA and she has been on Lovenox since that time. The patient did follow her video swallow test yesterday and had some noted aspiration. We were consulted for PEG tube placement. The patient is a very poor historian and unable to give me any past medical history, all was obtained from the chart. ALLERGIES: PENICILLIN, SULFA AND TRIMETHOPRIM. MEDICATIONS: From home include probiotic, levothyroxine, calcium, Advil, Imodium, Systane eye drops, aspirin, Claritin, Mag-Ox, melatonin, Tylenol, omega-3, Neurontin, Glucophage, cranberry, Mucinex, Glucotrol, DuoNeb, Prolia, famotidine, and ofloxacin otic drops. PAST MEDICAL HISTORY: Stroke, diabetes, hypertension, hyperlipidemia, hypothyroidism, arthritis, history of hemorrhoids, UTIs, shingles back in 2012, she does have history of C. diff in the past. PAST SURGICAL HISTORY: Right hip surgery. FAMILY HISTORY: Noncontributory. SOCIAL HISTORY: Denies any alcohol, tobacco or illegal drug use. REVIEW OF SYSTEMS: Twelve-point review of [place] [address] CONSULTATION Name: DANTE NEVILLE Room: [address] IN [facility]#: [id number] Admission: 08/01/18 Attend Phys: Luz Marina Waldron MD Discharge: Date of : 42 Report #: [id number] except what is mentioned in the HPI. PHYSICAL EXAMINATION: VITAL SIGNS: Temperature 36.5, pulse 86, respirations 17, blood pressure 177/72. HEART: Regular rate and rhythm. LUNGS: Clear, but slightly diminished. ABDOMEN: Soft, positive bowel sounds in all 4 quadrants with no masses or tenderness noted. NEUROLOGIC: The patient has right-sided weakness. She is alert and awake, but not fully oriented. LABORATORY DATA: Last done on 08/01/2018, hemoglobin was 10.7, platelets 387. PT was 9.7, INR was 0.9. Her GFR was 97. We will repeat these labs prior to PEG tube placement. IMPRESSION: 1. Nutritional supplementation. 2. Failed video swallow. 3. Embolic stroke. PLAN: 1. EGD, PEG with Dr. Rodriguez today. 2. We will get CBC, PT, INR and BMP prior to the procedure. 3. We will consult dietary for tube feeding recommendations. Thank you for allowing us to participate in this patient's care. Please do not hesitate to call with any questions in regard to this consult. Agree with evaluation, assessment and plan as outlined by Victoria Hayden in the note above. <ELECTRONICALLY SIGNED> By: Sammy Rodriguez MD 08/07/18 1911 1009 0053Sammy Rodriguez MD /nt
[2018-08-07 20:00] VITALS: BP 126/91
[2018-08-08] VITALS: BP 110/70
[2018-08-08 04:00] VITALS: BP 119/56
[2018-08-08 05:26] LABS: CALCIUM 8.9 mg/dL (8.5-10.1); MAGNESIUM 2.1 mg/dL (1.8-2.4); POTASSIUM 4.7 mmol/L (3.5-5.1)
[2018-08-08 08:00] VITALS: BP 136/69
[2018-08-08 15:53] VITALS: BP 128/69
[2018-08-08 20:00] VITALS: BP 151/63
[2018-08-09] VITALS: BP 138/64
[2018-08-09 04:00] VITALS: BP 144/61
[2018-08-09 08:00] VITALS: BP 130/58
[2018-08-09 13:02] VITALS: BP 128/60
[2018-08-09 17:25] VITALS: BP 162/78
[2018-08-09 20:10] VITALS: BP 152/71
[2018-08-10] VITALS: BP 101/43
[2018-08-10 04:00] VITALS: BP 140/57
[2018-08-10] MEDS ORDERED: LANTUS100 UNIT/M SUBQ (10:06)
[2018-08-10] MEDS ORDERED: GLUCOTROL5 MG PER TUBE (10:06)
[2018-08-10] MEDS ORDERED: ATORVASTATIN CA40 MG PERTUBE (10:06)
--- NOTE | 2018-08-10 12:05 | PATH ---
[address] [address] PATHOLOGY RPT PROCEDURE Name: DANTE NEVILLE Room: [facility] IN M.R.#: [id number] Admission: 08/01/18 Date of : 44 Discharge: Report #: [id number] Path Case #: [id number] [facility] Accession Number: [id number] . 01 Material submitted: . GASTRIC BIOPSIES TO RULE OUT H-PYLORI . 01 Clinical history: . Rule out H. pylori . 02 Diagnosis: Gastric biopsy, "gastric biopsy": - Mild chronic reactive gastropathy. - The immunoperoxidase stains for Helicobacter pylori is negative. . (SHA:mml; 08/07/2018) QL/08/07/2018 . 02 Electronically signed: . Tom Fung MD, Pathologist NPI- [id number] . 01 Gross description: . Received in formalin labeled "Dante Neville, gastric biopsy," and additionally labeled on the requisition as "biopsies," are 3 segments of arce soft tissue measuring 1.1 x 0.7 x 0.2 cm in aggregate dimensions and ranging from 0.5 to 0.6 cm in maximum dimension. The specimen is submitted entirely in cassette A1. (TSD; 08/06/2018) TOB/TOB . 02 Pathologist provided ICD-10: K31.9 . 02 CPT . 006156, [id number] Specimen Comment: A courtesy copy of this report has been sent to Specimen Comment: [phone], , . Specimen Comment: Report sent to ,DR JEFFERS / DR BROWN Specimen Comment: A duplicate report has been generated due to demographic updates. Performed at: [address] [facility] [id number] MD Daquan Denis MD Phone: [phone] Performed at: [address] [id number] [place] [address] PATHOLOGY RPT PROCEDURE Name: DANTE NEVILLE Room: [address] ADM IN M.R.#: [id number] Admission: 08/01/18 Date of : 42 Discharge: Report #: [id number] Path Case #: [id number] MD Benny Conley MD Phone: [phone]
[2018-08-10 12:40] VITALS: BP 165/72
[2018-08-10 12:49] VITALS: BP 165/72
== END 2018-08-10 14:15 | DRG 64 ==
LOC: M.ERS 07:32 → M.2W 08:52 → M.TBA-ER 08:52 → M.2W 14:38
PROVIDERS: Emergency Medicine Emergency Medical Services; Internal Medicine; Nurse Practitioner Adult Health; ADMIT Internal Medicine
PROC: 0DB68ZX Excision of Stomach, Via Natural or Artificial Opening Endoscopic, Diagnostic (ICD-10-PCS; principal; 2018-08-06)
PROC: 0DH63UZ Insertion of Feeding Device into Stomach, Percutaneous Approach (ICD-10-PCS; principal; 2018-08-06)
DX: I63.40 Cerebral infarction due to embolism of unspecified cerebral artery (principal); G93.41 Metabolic encephalopathy; G81.91 Hemiplegia, unspecified affecting right dominant side; E44.0 Moderate protein-calorie malnutrition; G81.94 Hemiplegia, unspecified affecting left nondominant side; R13.10 Dysphagia, unspecified; E03.9 Hypothyroidism, unspecified; K26.9 Duodenal ulcer, unspecified as acute or chronic, without hemorrhage or perforation; E78.5 Hyperlipidemia, unspecified; M19.90 Unspecified osteoarthritis, unspecified site; I10 Essential (primary) hypertension; E11.9 Type 2 diabetes mellitus without complications; Z68.26 Body mass index [BMI] 26.0-26.9, adult; Z79.1 Long term (current) use of non-steroidal anti-inflammatories (NSAID); Z79.899 Other long term (current) drug therapy; Z79.82 Long term (current) use of aspirin; Z88.2 Allergy status to sulfonamides; Z88.0 Allergy status to penicillin; Z88.8 Allergy status to other drugs, medicaments and biological substances

== ENCOUNTER 2018-09-02 02:09 | Inpatient (IN) | payer MEDICARE, MEDICAID | END 2018-09-09 16:00 | DRG 64 | LOC: M.ERS 02:09 → M.TBA-ER 03:35 → M.2W 04:44 | PROVIDERS: ADMIT Internal Medicine | DX: I63.89 Other cerebral infarction (principal); G93.41 Metabolic encephalopathy; R65.11 Systemic inflammatory response syndrome (SIRS) of non-infectious origin with acute organ dysfunction; N39.0 Urinary tract infection, site not specified; A04.72 Enterocolitis due to Clostridium difficile, not specified as recurrent; E11.9 Type 2 diabetes mellitus without complications; I10 Essential (primary) hypertension; E78.5 Hyperlipidemia, unspecified; E03.9 Hypothyroidism, unspecified; M19.90 Unspecified osteoarthritis, unspecified site; F01.50 Vascular dementia, unspecified severity, without behavioral disturbance, psychotic disturbance, mood disturbance, and anxiety; B96.20 Unspecified Escherichia coli [E. coli] as the cause of diseases classified elsewhere; E83.42 Hypomagnesemia; R13.10 Dysphagia, unspecified; Z16.24 Resistance to multiple antibiotics; Z88.0 Allergy status to penicillin; Z88.2 Allergy status to sulfonamides; Z88.8 Allergy status to other drugs, medicaments and biological substances; Z93.1 Gastrostomy status ==

== ENCOUNTER 2018-11-12 11:54 | Emergency (ER) | payer MEDICARE, MEDICAID ==
[~2018-11-12] VITALS: Ht 170.2 cm; Wt 69.1 kg
[~2018-11-12 11:54] MED LIST changes: +ARTIFICIAL TEAR15 M1 OPHTHALMIC; +ATORVASTATIN CA40 MG PERTUBE; +CALCIUM 600 +1 EAC1 PER TUBE; +FAMOTIDINE 20 M20 MG PER TUBE; +GLUCOTROL5 MG PER TUBE; +IBUPROFEN 200200 M1 PER TUBE; +LANTUS100 UNIT/M SUBQ; +LOPERAMIDE 2 MG2 M1 PER TUBE; +MACROBID 100 M100 M1 PO; +OCUFLOX5 ML OTIC; +PROLIA60 MG/1 ML; +PROLIA60 MG/1 ML IM; +SIMETHICON CHEW80 M1 PO; +SYSTANE GEL EYE10 ML OTIC; +VANCOMYCIN HCL250 M1 PO
[2018-11-12] MEDS ORDERED: NORVASC5 MG PO (14:43)
[2018-11-12] MEDS ORDERED: FLORASTORKIDS250 MG PER TUBE (14:43)
[2018-11-12] MEDS ORDERED: MUPIROCIN15 GM TOP (14:52)
[2018-11-12 15:10] VITALS: BP 163/67
== END 2018-11-12 15:44 | disposition home or self-care (01) ==
LOC: M.ERS 11:54
DX: K94.23 Gastrostomy malfunction (principal); R05 Cough; L08.89 Other specified local infections of the skin and subcutaneous tissue; E11.9 Type 2 diabetes mellitus without complications; I10 Essential (primary) hypertension; M19.90 Unspecified osteoarthritis, unspecified site; K64.9 Unspecified hemorrhoids; E03.9 Hypothyroidism, unspecified; Z88.2 Allergy status to sulfonamides; Z88.0 Allergy status to penicillin; Z88.8 Allergy status to other drugs, medicaments and biological substances; Z86.73 Personal history of transient ischemic attack (TIA), and cerebral infarction without residual deficits; Z79.4 Long term (current) use of insulin

== ENCOUNTER 2019-02-06 03:24 | Emergency (ER) | payer MEDICARE, MEDICAID ==
[~2019-02-06] VITALS: Ht 162.6 cm; Wt 67.0 kg
[~2019-02-06 03:24] MED LIST changes: +FLORASTORKIDS250 MG PER TUBE; +IPRAT-ALBUT 0.5-3 ML INH; +MUPIROCIN15 GM TOP
[2019-02-06 03:48] LABS: URINE BILIRUBIN NEGATIVE (Negative); URINE BLOOD TRACE (Negative); URINE CLARITY SL CLOUDY; URINE COLOR YELLOW; URINE GLUCOSE-RANDOM 1+ (Negative); URINE KETONES NEGATIVE (Negative); URINE LEUKOCYTES-REFLEX 1+ (Negative); URINE PROTEIN 2+ (Negative); URINE SPECIFIC GRAVITY 1.025 (1.005-1.030); URINE UROBILINOGEN 0.2 E.U./dl (0.2-1.0)
[2019-02-06 03:50] LABS: URINE NITRITE-REFLEX POSITIVE (Negative)
[2019-02-06] MEDS ORDERED: TRAMADOL 50 MG50 MG PO (03:55)
[2019-02-06 03:59] LABS: BE 1.6 mmol/L (-2 to +3); PCO2 33.4 mmHg (35.0-45.0); pH 7.484 (7.340-7.450)
[2019-02-06 04:06] LABS: PO2 138.1 mmHg (75.0-100.0)
[2019-02-06 04:10] LABS: HYALINE CASTS 0-3 Few /LPF (None Seen); MUCUS 0-3 Light strn/LPF (None Seen); SQUAMOUS 0-3 Few /LPF (0-3); URINE RBC 0-2 Rare /HPF (0-2); URINE WBC-REFLEX >25 Many /HPF (0-5)
[2019-02-06 04:11] LABS: BACTERIA-REFLEX >30 Many /HPF (None Seen); CRYSTALS None Seen /LPF (None Seen)
[2019-02-06 04:25] LABS: ABSOLUTE BASOPHILS 0.1 thou/uL (0.0-0.2); ABSOLUTE EOSINOPHILS 0.3 thou/uL (0.0-0.7); ABSOLUTE MONOCYTES 0.7 thou/uL (0.0-1.2); BASOPHILS 0.9 %; EOSINOPHILS 2.6 %; HEMATOCRIT 38.4 % (37.0-47.0); HEMOGLOBIN 12.5 gm/dL (12.0-15.0); LYMPHOCYTES 24.4 %; MCH 23.5 pg (26.0-34.0); MCHC 32.5 g/dL (28.0-37.0); MCV 72.4 fL (80.0-100.0); MPV 7.9 fl. (7.2-11.1); NUCLEATED RBCS 0 /100WBC; PLATELET COUNT* 445 thou/uL (150-400); POLYS 66.1 %; RBC 5.31 mil/uL (4.20-5.00); RDW-CV 18.3 % (10.5-14.5); WBC 12.1 thou/uL (4.0-11.0)
[2019-02-06 04:32] LABS: CALCIUM 9.5 mg/dL (8.5-10.1); CREATININE 0.7 mg/dL (0.6-1.3); POTASSIUM 3.6 mmol/L (3.5-5.1)
[2019-02-06 04:36] LABS: ALBUMIN 3.5 g/dL (3.4-5.0); MAGNESIUM 1.4 mg/dL (1.8-2.4); TOTAL BILIRUBIN 0.4 mg/dL (<0.1-1.0); TOTAL PROTEIN 7.6 g/dL (6.4-8.2)
[2019-02-06] MEDS ORDERED: LEVAQUIN 500 M500 MG PO (06:04)
[2019-02-06 08:35] VITALS: BP 140/60
== END 2019-02-06 09:09 | disposition home or self-care (01) ==
LOC: M.ERS 03:24
PROVIDERS: Personal Emergency Response Attendant
DX: N39.0 Urinary tract infection, site not specified (principal); R41.82 Altered mental status, unspecified; E83.42 Hypomagnesemia; E11.9 Type 2 diabetes mellitus without complications; I10 Essential (primary) hypertension; E78.5 Hyperlipidemia, unspecified; E03.9 Hypothyroidism, unspecified; M19.90 Unspecified osteoarthritis, unspecified site; Z86.73 Personal history of transient ischemic attack (TIA), and cerebral infarction without residual deficits; Z88.2 Allergy status to sulfonamides; Z88.0 Allergy status to penicillin; Z88.1 Allergy status to other antibiotic agents

== ENCOUNTER 2019-02-07 07:16 | Inpatient (IN) | payer MEDICARE, MEDICAID ==
[~2019-02-07] VITALS: Ht 165.1 cm; Wt 63.7 kg
--- NOTE | ~2019-02-07 | CON ---
[address] [address] CONSULTATION Name: DANTE NEVILLE Room: [address] IN .R.#: [id number] Admission: 02/07/19 Attend Phys: Indra Zelaya MD Discharge: Date of : 42 Report #: [id number] THIS REPORT FOR: //name// CC: Andrea Zelaya HISTORY OF PRESENT ILLNESS: This is a 78-year-old female with past medical history of diabetes, hypertension, hyperlipidemia and embolic stroke in 07/2018, who was brought in because of a dislodged PEG tube. The patient initially was evaluated in July when she presented with a stroke. At that time, she had failed her swallow study and a PEG tube was recommended. 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 Subsequently, they successfully placed a PEG tube, which the patient had been using until recently. The circumstances of the PEG tube dislodgement are unclear, but at the time of examination the PEG tube was completely removed from the stomach and the orifice for the PEG tube was closed. PAST MEDICAL HISTORY: The patient has a past medical history significant for hypertension, hyperlipidemia, stroke, and C. diff infection. PAST SURGICAL HISTORY: The patient has a history of knee surgery. SOCIAL HISTORY: There is no history of smoking, alcohol or recreational drug use. FAMILY HISTORY: There is no family history of colorectal cancer or Lassiter related neoplasia. PHYSICAL EXAMINATION: VITAL SIGNS: The patient's blood pressure is 148/70, pulse rate 89, respirations 19 per minute, temperature 36.3. GENERAL: The patient is awake, but she is not alert or oriented. HEENT: Mucous membranes are moist. There is no congestion. LUNGS: Clear to auscultation bilaterally. CARDIOVASCULAR: Rate and rhythm regular. S1, S2 present. ABDOMEN: Soft. There is no distention, guarding or rigidity. EXTREMITIES: Warm and well perfused. There is no edema. SKIN: Warm and dry. ASSESSMENT AND PLAN: Pleasant 78-year-old female who presented with PEG tube dislodgement. The patient needs PEG tube because she had failed previously video swallow study. Although the patient is currently able to swallow liquids, she may not be able to fulfill her caloric requirements [place] [address] CONSULTATION Name: DANTE NEVILLEMELISSA Room: [address] IN [facility]#: [id number] Admission: 02/07/19 Attend Phys: Indra Zelaya MD Discharge: Date of : 44 Report #: [id number] I would recommend a repeat EGD with PEG tube placement tomorrow. Further recommendations will be based on the results of these tests. By: 1753 MD cristóbal Mccormack
[~2019-02-07 07:16] MED LIST changes: +LEVAQUIN 500 M500 MG PO; +TRAMADOL 50 MG50 MG PO
[2019-02-07 07:20] VITALS: BP 136/75
[2019-02-07 07:46] LABS: ABSOLUTE BASOPHILS 0.1 thou/uL (0.0-0.2); ABSOLUTE EOSINOPHILS 0.2 thou/uL (0.0-0.7); ABSOLUTE LYMPHOCYTES 1.6 thou/uL (0.8-5.3); ABSOLUTE MONOCYTES 0.5 thou/uL (0.0-1.2); ABSOLUTE NEUTROPHILS 7.3 thou/uL (1.6-8.1); BASOPHILS 0.6 %; EOSINOPHILS 2.4 %; HEMATOCRIT 42.1 % (37.0-47.0); HEMOGLOBIN 13.8 gm/dL (12.0-15.0); LYMPHOCYTES 16.7 %; MCH 23.7 pg (26.0-34.0); MCHC 32.7 g/dL (28.0-37.0); MCV 72.6 fL (80.0-100.0); MPV 7.9 fl. (7.2-11.1); NUCLEATED RBCS 0 /100WBC; PLATELET COUNT* 470 thou/uL (150-400); POLYS 75.3 %; RBC 5.81 mil/uL (4.20-5.00); WBC 9.7 thou/uL (4.0-11.0)
[2019-02-07 08:02] LABS: ANION GAP 12 mmol/L (7-16); BUN 14 mg/dL (7-18); CALCIUM 9.9 mg/dL (8.5-10.1); CHLORIDE 94 mmol/L (98-107); CO2 27 mmol/L (21-32); CREATININE 0.7 mg/dL (0.6-1.3); GLUCOSE 241 mg/dL (70-99); POTASSIUM 4.4 mmol/L (3.5-5.1); SODIUM 133 mmol/L (136-145)
[2019-02-07 08:04] LABS: APTT 24.2 Seconds (25.0-31.3); PROTIME 10.4 Seconds (9.20-11.50)
[2019-02-07 08:13] LABS: ALBUMIN 3.9 g/dL (3.4-5.0); ALKALINE PHOSPHATASE 82 U/L (46-116); NT-PRO BRAIN NAT PEPTIDE 79 pg/mL (<300); SGOT 25 U/L (15-37); SGPT 20 U/L (30-65); TOTAL BILIRUBIN 0.7 mg/dL (<0.1-1.0); TOTAL PROTEIN 8.8 g/dL (6.4-8.2); TROPONIN-I LEVEL <0.06 ng/mL (<0.06)
[2019-02-07 08:31] LABS: URINE BILIRUBIN NEGATIVE (Negative); URINE BLOOD 2+ (Negative); URINE CLARITY CLOUDY; URINE COLOR YELLOW; URINE GLUCOSE-RANDOM 1+ (Negative); URINE KETONES NEGATIVE (Negative); URINE LEUKOCYTES-REFLEX 2+ (Negative); URINE NITRITE-REFLEX NEGATIVE (Negative); URINE PROTEIN TRACE (Negative); URINE SPECIFIC GRAVITY >= 1.030 (1.005-1.030); URINE UROBILINOGEN 0.2 E.U./dl (0.2-1.0)
[2019-02-07 08:41] LABS: AMORPHOUS URATES Many /LPF (None Seen); BACTERIA-REFLEX >30 Many /HPF (None Seen); CRYSTALS None Seen /LPF (None Seen); SQUAMOUS 0-3 Few /LPF (0-3); URINE RBC 0-2 Rare /HPF (0-2); URINE WBC-REFLEX >25 Many /HPF (0-5)
[2019-02-07 09:29] VITALS: BP 117/75
[2019-02-07 10:00] VITALS: BP 162/78
--- NOTE | 2019-02-07 11:20 | NUR ---
RECEIVED REPORT FROM ER AT 1000, GET SITUATED TO ROOM. PT ALERT, AWAKE, CONFUSED, PT ON BEDREST, PT HAS L SIDED WEAKNESS. O2 SAT 90'S RA. PT M/S. PT ON TIDWELL CATHETER. LAST BM TODAY. PT ON ISOLATION PRECAUTION, HISTORY OF CDIFF. PT LUNG SOUND COARSE. OPEN WOUND ON SACRAL AREA NOTED, PICTURE TAKEN, Q2 TURN, BED ALARM, HOURLY ROUNDING, CALL LIGHT WITHIN REACH, ADMISSION ASSESSMENT CHARTED. WILL CONTINUE TO MONITOR.
[2019-02-07 12:00] VITALS: BP 133/70
[2019-02-07 20:20] VITALS: BP 140/72
[2019-02-08 04:00] VITALS: BP 141/73
[2019-02-08 04:51] LABS: HEMATOCRIT 36.6 % (37.0-47.0); MCH 23.4 pg (26.0-34.0); MCHC 32.2 g/dL (28.0-37.0); MCV 72.7 fL (80.0-100.0); RBC 5.04 mil/uL (4.20-5.00); RDW-CV 18.3 % (10.5-14.5); WBC 8.4 thou/uL (4.0-11.0)
[2019-02-08 05:01] LABS: HEMOGLOBIN 11.8 gm/dL (12.0-15.0)
[2019-02-08 05:02] LABS: CALCIUM 8.9 mg/dL (8.5-10.1); CREATININE 0.6 mg/dL (0.6-1.3)
[2019-02-08 05:11] LABS: POTASSIUM 3.3 mmol/L (3.5-5.1)
--- NOTE | 2019-02-08 07:31 | NUR ---
PT CARE ASSUMED AT 1930. SAT MAINTAINED IN RA. PT IS CONFUSED. CALL LIGHT WITHIN REACH AND BED IN LOW POSITION. DENIES PAIN AND SOB. HOURLY ROUNDING DONE FOR PT SAFETY.
[2019-02-08 09:00] VITALS: BP 161/77
--- NOTE | 2019-02-08 10:24 | EKG ---
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: : 1940 Requested By: Kvng Nieto Order Number: [id number] MD: Eran Chandler Measurements Intervals [place] Rate: 92 P: 0 CA: 159 QRS: -31 QRSD: 90 T: 159 QT: 336 QTc: 416 Interpretive Statements Sinus rhythm artifact noted Inferior infarct, old Lateral leads are also involved Baseline wander in lead(s) V2 Electronically Signed On 02-08-2019 10:24:11 CDT by Erna Chandler [email or web address] <ELECTRONICALLY SIGNED> By: Eran Chandler MD, [facility] 02/08/19 [facility] 3 3 Eran Chandler MD, FACC /EPI
--- NOTE | 2019-02-08 10:34 | NUR ---
PT SEEN FOR BEDSIDE SWALLOW EVAL. PT TOLERATING MECH SOFT/THIN DIET C PILLS CRUSHED IN PUREE C NO ASPIRATION/PENETRATION. IF PT IS RECEIVING ADEQUATE NUTRITION THROUGH PO INTAKE, RECOMMEND THAT G TUBE NOT BE PLACED AGAIN. PT'S OROPHARYNGEAL SWALLOWING IS NOT A BARRIER FOR ADEQUATE PO NUTRITION. PLEASE CONTACT AUGUSTIN IN SPEECH THERAPY IF QUESTIONS ARISE.
--- NOTE | 2019-02-08 12:14 | NUR ---
Pt known to this CM from previous hospital stay. Spoke with malathi on phone, plan is for Pt to return to [facility] at [place]. Per Fiona at [facility], they are able to accept Pt back. Pt is total care. Confused and lethargic today. Following
--- NOTE | 2019-02-08 13:34 | NUR ---
WOUND NURSE: PATIENT SEEN FOR SHALLOW EROSION ON THE LEFT SACRAL AREA. PRESENTS A SHALLOW LINEAR LESION MEASURING 2.0 X 0.5 X 0.1 CM. THE LESION IS PINK AND MOIST WITH THIN LAYER OF SCAB ALONG ONE EDGE. THERE IS A SCANT AMOUNT OF SEROUS DRAINAGED NOTED. CLEANSED WITH WOUND CLEANSER AND GAUZE, THEN APPLIED SKIN PREP TO PERIWOUND TISSUE, THEN COVERED WITH AQUACEL AG UNDER BORDERED FOAM DRESSING. PATIENT WAS REPOSITIONED ONTO HER RIGHT SIDE.
[2019-02-08 16:00] VITALS: BP 148/70
--- NOTE | 2019-02-08 16:55 | EKG ---
[place] [address] ELECTROCARDIOGRAM REPORT Name: DANTE NEVILLE Room: [address] ADM IN M.R.#: [id number] Admission: 02/07/19 Attend Phys: Indra Zelaya MD Discharge: Date of : 44 Report #: [id number] THIS REPORT FOR: //name// [facility] ED Test Date: 2019-02-06 Test Time: 03:30:10 Pat Name: DANTE NEVILLE Department: Room: [address] Gender: F Kiln Hand: [place] : 1940 Requested By: Kvng Nieto Order Number: [id number] MD: Eran Chandler Measurements Intervals [place] Rate: 76 P: 32 MD: 143 QRS: -27 QRSD: 88 T: 105 QT: 397 QTc: 447 Interpretive Statements Sinus rhythm Borderline left axis deviation Low voltage, precordial leads Nonspecific T abnormalities, lateral leads Compared to ECG 09/02/2018 02:27:52 No significant changes Electronically Signed On 02-08-2019 16:55:29 CDT by Eran Chandler [email or web address] <ELECTRONICALLY SIGNED> By: Eran Chandler MD, [facility] 02/08/19 1655 0330 0330 Eran Chandler MD, [facility] /EPI
--- NOTE | 2019-02-08 19:01 | NUR ---
I ASSUMED CARE OF THE PATIENT AT 0700. SHE IS ONLY ORIENTED TO SELF WITHOUT PROMPTING. BED IS IN THE LOW LOCKED POSITION AND CALL LIGHT IS IN REACH. HOURLY ROUNDING IS COMPLETED AND PATIENT NEEDS ARE MET. PAIN IS DENIED. SHE IS PASSING ALL SWALLOW STUDIES AND TAKES PILLS CRUSHED IN APPLESAUCE. SHE IS GETTING A NEW PEG TUBE PLACED BY GI TOMORROW. WATCHING ELYTES. PATIENT WAS TURNED EVERY TWO HOURS. WILL CONTINUE TO MONITOR. PRESSURE ULCER WAS CLEANED AND BANDAGE WAS CHANGED.
[2019-02-08 20:10] VITALS: BP 133/62
[2019-02-09] VITALS (7 sets, daily range): BP systolic 140–159; BP diastolic 56–85
--- NOTE | 2019-02-09 05:45 | NUR ---
PT CARE ASSUMED AT 1930. SAT MAINTAINED IN RA. PT IS CONFUSED AND DROWSY. DENIES PAIN AND SOB. CALL LIGHT WITHIN REACH AND BED IN LOW POSITION. TIDWELL IN PLACE AND DRAINING. HOURLY ROUNDING DONE FOR PT SAFETY.
--- NOTE | 2019-02-09 14:20 | NUR ---
ASSUMED PT CARE AT 0730. PT TO BE NOTED IN BED RESTING. PT RESPONDS APPROPRIATELY WHEN SPOIKEN TO. PT DENIES PAIN OR DISCOMFORT. PT IS NPO FOR G TO PLACEMENT. WILL CONT TO MONITOR AND COMPLETE HOURLY ROUNDS. VSS.
--- NOTE | 2019-02-10 05:20 | NUR ---
ASSUMED PATIENT CARE AT 1900. PATIENT VERY DROWSY, ALERT TO SELF. G-TUBE FLUSHED PER PROCEDURAL NOTE. NO ISSUES NOTED. AM MEDS CRUSHED AND OUT THROUGH G-TUBE, NO ISSUES NOTED. NO COMPLAINTS OF PAIN OR DISCOMFORT NOTED. TIDWELL IN PLACE. SCOOPER AND HOURLY ROUNDING COMPLETED CHARTED.
--- NOTE | 2019-02-10 08:35 | NUR ---
ASSUMED PT CARE AT 0700, PT NOTED TO BE RESTING IN BED WITH EYES CLOSED. RESPONSES EASILY TO THIS NURSES IS VOICE. ASSESSMENT COMPLETE ET DOCUMENTED IN CHART. HOURLY ROUNDS WILL BE DOCUMENTED COMPLETED. VSS, CALL LIGHT IS WITHIN REACH.
--- NOTE | 2019-02-10 09:22 | NUR ---
Therapies to see Pt today. Anticipate dc, faxed referral to [facility].
[2019-02-10] MEDS ORDERED: FIRVANQ50 MG/1 ML PO (10:29)
[2019-02-10] MEDS ORDERED: CLEOCIN PA75 MG/5 ML PERTUBE (10:29)
--- NOTE | 2019-02-10 10:56 | NUR ---
Pt discharging back to [facility] today, faxed referral and dc orders. Chart copied. Nurse report is [phone]. Updaated Pt's granddtr. Ambulance transport arranged for 330.
[2019-02-10 14:57] LABS: URINE BILIRUBIN NEGATIVE (Negative); URINE BLOOD NEGATIVE (Negative); URINE CLARITY CLEAR; URINE COLOR YELLOW; URINE GLUCOSE-RANDOM NEGATIVE (Negative); URINE KETONES 2+ (Negative); URINE LEUKOCYTES-REFLEX TRACE (Negative); URINE NITRITE-REFLEX NEGATIVE (Negative); URINE PROTEIN 1+ (Negative); URINE UROBILINOGEN 0.2 E.U./dl (0.2-1.0)
[2019-02-10 15:00] VITALS: BP 136/67
[2019-02-10 15:04] LABS: SQUAMOUS >10 Many /LPF (0-3)
[2019-02-10 15:05] LABS: URINE RBC None Seen /HPF (0-2)
[2019-02-10 15:06] LABS: CASTS None Seen /LPF (None Seen); CRYSTALS None Seen /LPF (None Seen); MUCUS 0-3 Light strn/LPF (None Seen)
[2019-02-10 15:11] VITALS: BP 129/65
--- NOTE | 2019-02-10 16:39 | NUR ---
PT WAS DISCHARGED TO [facility] AT APPROXIMATELY 1600. URINARY CATHETER WAS CHANGED ET URINE SAMPLE COLLECTED ET TAKEN TO LAB. WOUND CARE COMPLETE, PICTURES TAKEN FOR CHART. IV REMOVED BEFORE DISCHARGE. G-TUBE CLEAN, PATENT ET INTACT. PT LEFT IN A HOSPITAL BED ACCOMPANIED BY GRANDDAUGHTER.
== END 2019-02-10 16:00 | DRG 393 ==
LOC: M.ERS 07:16 → M.2W 08:50 → M.TBA-ER 08:50 → M.2W 09:38
PROVIDERS: Family Medicine; Internal Medicine; ADMIT Family Medicine
PROC: 0D20XUZ Change Feeding Device in Upper Intestinal Tract, External Approach (ICD-10-PCS; principal; 2019-02-09)
DX: K94.29 Other complications of gastrostomy (principal); G92 Toxic encephalopathy; N39.0 Urinary tract infection, site not specified; I69.351 Hemiplegia and hemiparesis following cerebral infarction affecting right dominant side; I69.354 Hemiplegia and hemiparesis following cerebral infarction affecting left non-dominant side; Y83.3 Surgical operation with formation of external stoma as the cause of abnormal reaction of the patient, or of later complication, without mention of misadventure at the time of the procedure; E11.9 Type 2 diabetes mellitus without complications; I10 Essential (primary) hypertension; E78.5 Hyperlipidemia, unspecified; J42 Unspecified chronic bronchitis; D47.3 Essential (hemorrhagic) thrombocythemia; R13.10 Dysphagia, unspecified; E03.9 Hypothyroidism, unspecified; M19.90 Unspecified osteoarthritis, unspecified site; B96.89 Other specified bacterial agents as the cause of diseases classified elsewhere; Z87.440 Personal history of urinary (tract) infections; Z79.899 Other long term (current) drug therapy; Z79.4 Long term (current) use of insulin; Z79.82 Long term (current) use of aspirin; Y92.89 Other specified places as the place of occurrence of the external cause; Z79.84 Long term (current) use of oral hypoglycemic drugs; Z88.0 Allergy status to penicillin; Z88.2 Allergy status to sulfonamides; Z88.8 Allergy status to other drugs, medicaments and biological substances

== ENCOUNTER 2019-09-20 23:37 | Inpatient (IN) | payer MEDICARE, MEDICAID ==
[~2019-09-20] VITALS: Ht 160 cm; Wt 61.7 kg
[~2019-09-20 23:37] MED LIST changes: +CLEOCIN PA75 MG/5 ML PERTUBE; +FIRVANQ50 MG/1 ML PO; -PROLIA60 MG/1 ML; +PROLIA60 MG/1 ML SUBQ
[2019-09-20 23:38] VITALS: BP 181/85
[2019-09-21 00:31] LABS: ABSOLUTE BASOPHILS 0.1 thou/uL (0.0-0.2); ABSOLUTE EOSINOPHILS 0.4 thou/uL (0.0-0.7); ABSOLUTE LYMPHOCYTES 3.1 thou/uL (0.8-5.3); ABSOLUTE MONOCYTES 0.7 thou/uL (0.0-1.2); ABSOLUTE NEUTROPHILS 8.4 thou/uL (1.6-8.1); BASOPHILS 0.8 %; EOSINOPHILS 3.2 %; HEMATOCRIT 40.7 % (37.0-47.0); HEMOGLOBIN 13.5 gm/dL (12.0-15.0); LYMPHOCYTES 24.5 %; MCH 25.2 pg (26.0-34.0); MCHC 33.1 g/dL (28.0-37.0); MCV 76.1 fL (80.0-100.0); MONOCYTES 5.2 %; MPV 8.4 fl. (7.2-11.1); NUCLEATED RBCS 0 /100WBC; PLATELET COUNT* 425 thou/uL (150-400); POLYS 66.3 %; RBC 5.34 mil/uL (4.20-5.00); WBC 12.6 thou/uL (4.0-11.0)
[2019-09-21 00:46] LABS: CALCIUM 9.4 mg/dL (8.5-10.1); CREATININE 0.6 mg/dL (0.6-1.3)
[2019-09-21 00:48] LABS: APTT 24.7 Seconds (25.0-31.3)
[2019-09-21 00:56] LABS: ALBUMIN 3.8 g/dL (3.4-5.0); TOTAL BILIRUBIN 0.5 mg/dL (<0.1-1.0)
--- NOTE | 2019-09-21 00:56 | NUR ---
IV ATTEMPTS X 6, 5 ATTEMPTS UNSUCCESSFUL. I ATTEMPTED X2, RIGHT FOREARM AND LEFT FOREARM UNSUCCESSFUL. KRISTINE PRICE RN, ATTEMPT X2 UNSUCCESSFUL. DR HELTON X2 ATTEMPTS AND IV SUCCESSFUL IN LEFT UPPER ARM. PT TOLERATED PROCEDURE WELL
[2019-09-21 01:01] LABS: URINE BILIRUBIN NEGATIVE (Negative); URINE BLOOD TRACE (Negative); URINE CLARITY CLEAR; URINE COLOR YELLOW; URINE GLUCOSE-RANDOM NEGATIVE (Negative); URINE KETONES NEGATIVE (Negative); URINE NITRITE-REFLEX NEGATIVE (Negative); URINE PROTEIN TRACE (Negative); URINE SPECIFIC GRAVITY 1.025 (1.005-1.030); URINE UROBILINOGEN 0.2 E.U./dl (0.2-1.0)
[2019-09-21 01:02] VITALS: BP 182/78
[2019-09-21 01:06] LABS: URINE LEUKOCYTES-REFLEX 3+ (Negative)
[2019-09-21 01:28] VITALS: BP 198/88
[2019-09-21 02:12] LABS: HYALINE CASTS 0-3 Few /LPF (None Seen); SQUAMOUS 4-10 Moderate /LPF (0-3); URINE RBC 3-10 Few /HPF (0-2); URINE WBC-REFLEX 6-15 Few /HPF (0-5)
[2019-09-21 02:13] LABS: BACTERIA-REFLEX >30 Many /HPF (None Seen); CRYSTALS None Seen /LPF (None Seen)
[2019-09-21 04:00] VITALS: BP 113/54
--- NOTE | 2019-09-21 06:14 | NUR ---
RECEIVED REPORT AND ASSUMED CARE OF PATIENT APPROX 0115. PATIENT'S PEG TUBED WAS DISPLACED AT [facility]. PATIENT STATES SHE IS NOT AWARE OF HOW IT GOT DISPLACED. PATIENT IS ORIENTED TO PERSON, PLACE, AND SOMEWHAT SITUATION BUT UNAWARE OF TIME. GRANDDAUGHTER STATES THAT SINCE SHE HAD A STROKE, PT HAS HAD SOME MILD CONFUSION. 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 NPO STATUS MAINTAINED. GI CONSULT IN PLACE FOR TODAY. CALL LIGHT WITHIN REACH
[2019-09-21] MEDS ORDERED: CLARITIN10 M3 PER TUBE (06:58)
[2019-09-21] MEDS ORDERED: NORVASC 2.5 MG2.5 M1 PER TUBE (07:05)
[2019-09-21] MEDS ORDERED: GLIPIZIDE 10 MG10 MG PER TUBE (07:07)
[2019-09-21] MEDS ORDERED: CALCIUM 600 +1 EA17 PER TUBE (07:09)
[2019-09-21] MEDS ORDERED: ASCORBIC ACID500 MG PER TUBE (07:10)
[2019-09-21] MEDS ORDERED: LISINOPRIL2.5 MG PER TUBE (07:28)
[2019-09-21] MEDS ORDERED: LANTUS100 UNIT/M SUBQ (07:30)
--- NOTE | 2019-09-21 11:52 | EKG ---
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: TS : 1940 Requested By: Kvng Nieto Order Number: [id number] MD: Chris Trimble Measurements Intervals [place] Rate: 95 P: 26 [place]: QRS: -29 QRSD: 87 T: 116 QT: 446 QTc: 561 Interpretive Statements Sinus rhythm Atrial premature complex Borderline left axis deviation Abnormal R-wave progression, early transition Nonspecific T abnrm, anterolateral leads Prolonged QT interval Compared to ECG 02/07/2019 08:04:39 Atrial premature complex(es) now present Prolonged QT interval now present Myocardial infarct finding no longer present Electronically Signed On 09-21-2019 11:50:58 CDT by Chris Trimble [email or web address] <ELECTRONICALLY SIGNED> By: Chris Trimble MD, [facility] 09/21/19 1150 0000 0000 Chris Trimble MD, [facility] /EPI
--- NOTE | 2019-09-21 14:41 | NUR ---
CM spoke with Pt's gdtr via phone. Pt resides at [facility]. Pt is total care, requires dung lift. Pt to have gtube replaced, then plan back to LTC once stable. BRE spoke with Fiona at [facility], they are able to accept Pt back. Pt will need ambulance transport. [facility] p:[phone]
[2019-09-21 19:50] VITALS: BP 167/79
--- NOTE | 2019-09-21 19:52 | NUR ---
REMAINS ALERT AND ORIENTED BUT CONFUSED. RESPIRATIONS EVEN AND UNLABORED ON ROOM AIR. DENIES PAIN. TIDWELL INTACT AND DRAINING YELLOW URINE WITH SEDIMENT. IVFS INFUSING WITHOUT COMPLICATIONS. PEG PLACED EARLIER THIS SHIFT. NO ISSUES. CALL HAGEN AND PERSONAL ITEMS WITHIN REACH. NSG WILL CONTINUE TO ASSESS.
[2019-09-22] VITALS: BP 147/83
--- NOTE | 2019-09-22 04:58 | NUR ---
PATIENT PROGRESSING TOWARDS GOALS: NO BLEEDING NOTED AT PEG TUBE SITE. PATIENT TOLERATED MEDS AND WATER THROUGH PEG TUBE. DENIES PAIN AND DISCOMFORT. TIDWELL INTACT. CALL LIGHT WITHIN REACH
[2019-09-22 10:26] LABS: HEMATOCRIT 40.4 % (37.0-47.0); MCHC 32.1 g/dL (28.0-37.0); MPV 8.6 fl. (7.2-11.1); RBC 5.18 mil/uL (4.20-5.00); RDW-CV 16.3 % (10.5-14.5); WBC 11.4 thou/uL (4.0-11.0)
[2019-09-22 12:20] VITALS: BP 132/68
[2019-09-22] MEDS ORDERED: [UNRECOGNIZED DRUG - CODE] PO (13:16)
[2019-09-22 14:49] VITALS: BP 132/68
--- NOTE | 2019-09-23 15:14 | CON ---
[address] [address] CONSULTATION Name: DANTE NEVILLE Room: [address] IN .R.#: [id number] Admission: 09/21/19 Attend Phys: Linda Lantigua Discharge: 09/22/19 Date of : 44 Report #: [id number] THIS REPORT FOR: //name// cc: Andrea Rojo MD, Anil K. MD ~ THIS REPORT FOR: //name// CC: Andrea Espinosa DO DATE OF SERVICE: 09/21/2019 REASON FOR CONSULT: Displacement of PEG tube. HISTORY OF PRESENT ILLNESS: This is a 79-year-old female with history of CVA and dysphagia, who has been on tube feeding. The patient apparently accidentally pulled her PEG tube about night before admission. She currently denies any abdominal pain, hematochezia or melena. The last time that the PEG tube was placed was in 10/2018 when it was clogged. PAST MEDICAL HISTORY: Significant for history of CVA, dysphagia, PEG tube placement, dyslipidemia, hypertension, diabetes, hypothyroidism, gastroesophageal reflux disease. ALLERGIES: SIGNIFICANT TO BACTRIM, PENICILLIN AND TRIMETHOPRIM. SOCIAL HISTORY: The patient lives in a custodial. She does not have tobacco or alcohol history. FAMILY HISTORY: Noncontributory. PHYSICAL EXAMINATION: VITAL SIGNS: Reveals blood pressure of 141/58, respirations 15, pulse 92, temperature 97.8. LUNGS: Clear. CARDIOVASCULAR: Regular. ABDOMEN: Soft, nontender, nondistended. Bowel sounds are positive. Ostomy site is covered by tape. There is no erythema around the skin. LABORATORY DATA: Reveal sodium of 137, potassium is 4.0, BUN is 13, creatinine 10.0, glucose is 185, total bilirubin is 0.5, AST is 16, ALT 20, albumin is 3.8. WBC is 12.6 with hemoglobin of 13.5 and platelet of 425. IMAGING: Chest x-ray was done on admission, which showed cardiomegaly [place] [address] CONSULTATION Name: DANTE NEVILLE Room: [address] IN ..#: [id number] Admission: 09/21/19 Attend Phys: Linda Lantigua Discharge: 09/22/19 Date of : 44 Report #: [id number] ASSESSMENT AND PLAN: The patient with history of CVA, who is dependent on a gastric tube feeding. This has been dislodged since last night and the site has closed. We will perform an upper endoscopy and place a 24-[place] PEG tube by method of pull. <ELECTRONICALLY SIGNED> By: Maggy Zhao MD 09/23/19 1514 1431 [id number] Zhao MD /ranjan
== END 2019-09-22 17:11 | DRG 394 ==
LOC: M.ERS 23:37 → M.2W 09-21 00:17 → M.TBA-ER 09-21 00:17 → M.2W 09-21 00:54
PROVIDERS: Family Medicine; Internal Medicine; ADMIT Internal Medicine
PROC: 0DH68UZ Insertion of Feeding Device into Stomach, Via Natural or Artificial Opening Endoscopic (ICD-10-PCS; principal; 2019-09-21)
DX: K94.23 Gastrostomy malfunction (principal); R65.10 Systemic inflammatory response syndrome (SIRS) of non-infectious origin without acute organ dysfunction; N39.0 Urinary tract infection, site not specified; Y83.9 Surgical procedure, unspecified as the cause of abnormal reaction of the patient, or of later complication, without mention of misadventure at the time of the procedure; E11.9 Type 2 diabetes mellitus without complications; F03.90 Unspecified dementia, unspecified severity, without behavioral disturbance, psychotic disturbance, mood disturbance, and anxiety; I10 Essential (primary) hypertension; E78.5 Hyperlipidemia, unspecified; E03.9 Hypothyroidism, unspecified; K44.9 Diaphragmatic hernia without obstruction or gangrene; R63.3 Feeding difficulties; M19.90 Unspecified osteoarthritis, unspecified site; Z87.440 Personal history of urinary (tract) infections; Y92.89 Other specified places as the place of occurrence of the external cause; Z79.899 Other long term (current) drug therapy; Z79.4 Long term (current) use of insulin; Z79.84 Long term (current) use of oral hypoglycemic drugs; Z88.1 Allergy status to other antibiotic agents; Z88.0 Allergy status to penicillin; Z88.2 Allergy status to sulfonamides; I69.398 Other sequelae of cerebral infarction